=== PATIENT | female | born 1975 | race Two or more races ===

== ENCOUNTER 2022-06-26 13:26 | Outpatient (CLI) | payer OTHER ==
[~2022-06-26 13:26] MED LIST: DICLOFENAC POTA50 MG PO; SKELAXIN800 MG PO
== END 2022-06-26 13:36 | disposition home or self-care (01) ==
LOC: PPH VACUNA 13:26
PROVIDERS: ATTEND Emergency Medicine Pediatric Emergency Medicine
DX: Z23 Encounter for immunization (principal)